=== PATIENT | female | born 1975 | race Caucasian/White ===

== ENCOUNTER 2024-09-09 08:59 | Day surgery (SDC) | payer OTHER, SELFPAY ==
[2024-09-09] VITALS (14 sets, daily range): BP systolic 126–145; BP diastolic 75–91; BMI 33.7
[2024-09-09] MEDS: LOW STRENGTH ASPIRIN 81 MG PO (09:42)
--- NOTE | 2024-09-09 11:14 | ITS.CL.PN ---
Ui Designer - Procedure Note
Procedure
Procedure Note:
CARDIAC CATHETERIZATION REPORT
Date of Procedure: 09/09/2024
Referring: Dr. Joe Espitia MD
Indication: anginal chest pain, positive cardiac stress test
PROCEDURE(S)
1. left heart catheterization
2. coronary angiography
ACCESS: 6F right radial artery (closure: radial band)
CATHETERS
1. 6F JR4
2. 6F JL3.5
MODERATE SEDATION: 25 minutes of moderate sedation was utilized. An independent medical fee clerk was present to assist with and help manage the patient's level of consciousness and physiologic status.
HEMODYNAMIC DATA
LV 154/6 (EDP 20) mmHg
AO 146/85 (mean 111) mmHg
CORONARY ANGIOGRAPHY
Dominance: right
LM: Large, normal
LAD: Large vessel giving rise to two moderate caliber diagonal branches. There are trivial luminal irregularities only.
LCx: Moderate caliber vessel giving rise to a single moderate caliber marginal branch. There are trivial luminal irregularities only.
RCA: Large vessel giving rise to large RPDA, moderate caliber LPL1, small LPL2, and small LPL3. There are trivial luminal irregularities only.
RADIATION: dose 322.24 mGy; DAP 29.5039 Gy*cm2; fluoroscopy time 4.8 min
CONCLUSIONS
1. Trivial luminal irregularities only in a right dominant system.
2. Mildly elevated LV filling pressure and no aortic stenosis.
RECOMMENDATIONS
1. Primary prevention of coronary artery disease.
2. Further workup for etiology of ANOCA.
Copy to: Dr. Joe Espitia MD (feed mixer helper)
Signed: Sebas Gabriel MD, PhD
== END 2024-09-09 13:35 | disposition home or self-care (01) ==
LOC: CATH 08:59
PROVIDERS: ATTENDING PHYSICIAN Student in an Organized Health Care Education/Training Program; OTHER PHYSICIAN Internal Medicine Cardiovascular Disease
DX: R07.9 Chest pain, unspecified (principal); R94.39 Abnormal result of other cardiovascular function study; I10 Essential (primary) hypertension; Z79.82 Long term (current) use of aspirin
CPT/HCPCS: 99152; 99153; 93005; 93458; C1894